=== PATIENT | female | born 1940 | race Caucasian/White ===

== ENCOUNTER 2016-08-15 10:46 | Outpatient (CLI) | payer MEDICARE, BC, OTHER | END 2016-08-15 10:47 | disposition home or self-care (01) | LOC: EMS 10:46 | PROVIDERS: ATTEND Surgery | DX: M54.89 Other dorsalgia (principal) | CPT/HCPCS: A0425; A0427 ==

== ENCOUNTER 2016-08-15 10:59 | Emergency (ER) | payer MEDICARE, BC, OTHER ==
--- NOTE | 2016-08-15 11:06 | ED Physician Documentation ---
History of Present Illness - Stated complaint Stated Complaint: BACK PAIN - Additonal information Additional information: hx from pt 76 female to ER with 1 hr of L upper back pain some rad to chest pain is severe and gripping somewhat worse with breathing or palpation no fever no cough no abd pain no numbness or weakness no incont no trauma no hx of same given fentanyl and nitro in route with some relief also R thumb pain s injury recalled for a week -hurts to move Review of Systems Constitutional: denies: Fever, Chills Cardiac: reports: Chest pain / pressure. 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[place]: Hysterectomy, Mastectomy - Present Medications Home Medications: Ambulatory Orders Medication Instructions Recorded Confirmed Levothyroxine [Synthroid] 100 mcg PO QDAC 09/16/14 10/01/14 Magnesium Oxide [Mag Ox] 400 mg PO QPM 09/16/14 10/01/14 Metformin HCl 1,000 mg PO BID 09/16/14 10/01/14 Potassium Chloride [Klor-Con M20] 1 tab PO DAILY 09/16/14 10/01/14 Furosemide [Lasix] 40 mg PO DAILY 10/01/14 10/01/14 Ibuprofen 600 mg PO TIDWM PRN 10/01/14 10/01/14 Metoprolol Tartrate [Lopressor] 25 mg PO BID 10/01/14 10/01/14 Oxycodone HCl/Acetaminophen 1 - 2 each PO Q4H PRN 10/01/14 10/01/14 [Percocet 5-325 mg Tablet] Pravastatin Sodium [Pravachol] 20 mg PO QPM 10/01/14 10/01/14 Amox/Clav 875/125 [Augmentin] 1 each PO Q12H #14 tablet 08/28/15 Fluconazole [Diflucan] 150 mg PO ONCE PRN #1 tablet 08/28/15 Furosemide [Lasix] 40 mg PO DAILY #0 tablet 08/28/15 Gabapentin 300 mg PO TID #30 capsule 08/28/15 Potassium Chloride 10 meq PO DAILY #3 tablet.er 08/28/15 Lidocaine Patch 5% [Lidoderm Patch] 1 each TOP DAILY PRN #10 patch 08/15/16 - Allergies Allergies/Adverse Reactions: Allergies Allergy/AdvReac Type Severity Reaction Status Date / Time No Known Drug Allergies Allergy Verified 08/15/16 11:06 - Social History Does the pt smoke?: No Smoking Status: Never smoker Does the pt drink ETOH?: No Does the pt have substance abuse?: No - Immunizations Immunizations are current?: Yes - POLST Patient has POLST: No PD ED PE NORMAL - Vitals Vital signs reviewed: Yes - General General: Alert and oriented X 3 - HEENT HEENT: PERRL - Neck Neck: Supple, no meningeal sign - Cardiac Cardiac: RRR, No murmur - Respiratory Respiratory: No respiratory distress, Clear bilaterally - Abdomen Abdomen: Soft, Non tender - Back Back: No spinal TTP, Other (L upper back TTP near scalpula, no shingles rash, no midline spine pain) - Derm Derm: Normal color - Extremities Extremities: Other (R hand - TTP hypotehnar region and prox thumb no deformity pain with ROM but able MSV intact no erythema or warmth) - Neuro Neuro: Alert and oriented X 3, No motor deficit, No sensory deficit Results - Vitals Vitals: Vital Signs - 24 hr 08/15/16 08/15/16 08/15/16 11:00 12:45 13:13 Temperature 36.8 C Heart Rate 73 57 L 68 Respiratory 20 16 24 Rate Blood Pressure 139/59 H 110/48 L 128/60 O2 Saturation 96 98 98 08/15/16 08/15/16 14:12 15:17 Temperature Heart Rate 66 70 Respiratory 24 16 Rate Blood Pressure 140/88 H 141/61 H O2 Saturation 98 98 Oxygen O2 Source Room air - EKG (time done) 1119 Rate: Rate (enter#) (67) Rhythm: NSR [place]: Normal Intervals: Normal [place] QRS: Normal Ischemia: Normal ST segments - Labs Labs: Laboratory Tests 08/15/16 08/15/16 08/15/16 11:15 11:15 15:09 WBC 4.7 L RBC 4.36 Hgb 13.2 Hct 38.7 MCV 88.7 MCH 30.4 MCHC 34.2 RDW 13.4 Plt Count 169 MPV 8.4 Neut # 2.7 Lymph # 1.4 L [place] # 0.4 Eos # 0.1 Baso # 0.1 Absolute Nucleated RBC 0.00 Nucleated RBCs 0.1 Sodium 145 Potassium 3.2 L Chloride 108 Carbon Dioxide 29 Anion Gap 8.0 BUN 22 H Creatinine 0.9 Estimated GFR (MDRD) 61 L Glucose 123 H Calcium 9.3 Total Bilirubin 0.7 AST 21 ALT 17 Alkaline Phosphatase 80 Troponin I < 0.04 Total Protein 6.9 Albumin 3.9 Globulin 3.0 Albumin/Globulin Ratio 1.3 Lipase 28 - Rads (name of study) CXR Radiology: See rad report (NACPD) hand Radiology: See rad report (OA of thumb) CTA chest Radiology: See rad report (no dissection or aneurysm, no PE, no L mass. There is inc linear) PD MEDICAL DECISION MAKING - ED course ED course: EKG s ischemia - will check 4 hr trop CXR no acute CTA neg for dissection likely musculo/skeletal Departure - Departure Disposition: 01 Home, Self Care Clinical Impression: Upper back pain on left side Condition: Good Instructions: ED Neck Back Pain General Prescriptions: Lidocaine Patch 5% [Lidoderm Patch] 1 each TOP DAILY PRN #10 patch PRN Reason: Pain Comments: The EKG and blood test for your heart were fine - no signs of a heart attack The CT scan did not show an aneurysm or tear of your aorta or any major lung mass to cause the pain The CT did show some other abnormalities that need some follow up - there were some abnormal spots in the right breast that could be leaks from the prior implant but I would recommend a mammogram. And there is a linear abnormality in the right lung that is not new but is slightly bigger than before - the radiologist think it is probably scarring or underinflated lung tissue - but recommends you see your PMD to get further follow up imaging in the near future to be sure there are no further changes I am not sure what did cause the back pain - it could be muscular - or it could be shingles and you may break out in a rash over the next few days (if that happens call your doctor for a viral medication prescription) You can use the lidocaine patches I prescribed as needed for the pain - up to 12 hr a day The thumb xray showed arthritis - recommend tylenol and you can wear the splint we gave you Do not take your metformin today or for three days after the CT scan with contrast And please follow up with your PMD to get your blood pressure rechecked - it was high today
[2016-08-15 11:23] LABS: BASOPHILS # (AUTO) 0.1 10^3/uL (0.0-0.1); BASOPHILS % (AUTO) 1.4 %; EOSINOPHILS # (AUTO) 0.1 10^3/uL (0.0-0.7); HCT - HEMATOCRIT 38.7 % (37.0-47.0); HGB - HEMOGLOBIN 13.2 g/dL (12.0-16.0); LYMPHOCYTES # (AUTO) 1.4 10^3/uL (1.5-3.5); LYMPHOCYTES % (AUTO) 29.7 %; MEAN CORPUSCULAR HEMOGLOBIN 30.4 pg (27.0-31.0); MEAN CORPUSCULAR HGB CONC 34.2 g/dL (32.0-36.0); MEAN CORPUSCULAR VOLUME 88.7 fL (81.0-99.0); MEAN PLATELET VOLUME 8.4 fL (7.9-10.8); MONOCYTES # (AUTO) 0.4 10^3/uL (0.0-1.0); MONOCYTES % (AUTO) 7.8 %; NEUTROPHILS # (AUTO) 2.7 10^3/uL (1.5-6.6); NEUTROPHILS % (AUTO) 58.1 %; NUCLEATED RED BLOOD CELLS AUTO 0.1 /100WBC; RED BLOOD COUNT 4.36 10^6/uL (4.20-5.40); RED CELL DISTRIBUTION WIDTH 13.4 % (12.0-15.0); UNCORRECTED WHITE BLOOD COUNT 4.7 x10^3/uL; WHITE BLOOD COUNT 4.7 x10^3/uL (4.8-10.8)
[2016-08-15 11:36] LABS: ALBUMIN/GLOBULIN RATIO 1.3 (1.0-2.2); BILIRUBIN,TOTAL 0.7 mg/dL (0.2-1.0); CALCIUM 9.3 mg/dL (8.5-10.3); CREATININE 0.9 mg/dL (0.4-1.0); POTASSIUM 3.2 mmol/L (3.5-5.0); TOTAL PROTEIN 6.9 g/dL (6.7-8.2)
--- NOTE | 2016-08-15 12:22 | XRAY Preliminary Report ---
Exam: XR Chest 1 View IMPRESSION: Normal single view chest. [facility] SITE ID: [id number]
--- NOTE | 2016-08-15 12:24 | XRAY Report ---
EXAM: CHEST RADIOGRAPHY EXAM DATE: 08/15/2016 12:07 PM. CLINICAL HISTORY: Left upper back pain. COMPARISON: 04/01/2015. TECHNIQUE: 1 view. FINDINGS: Lungs/Pleura: No focal opacities evident. No pleural effusion. No pneumothorax. Mediastinum: Within exam limitations, cardiomediastinal contour is normal. Other: None. IMPRESSION: Normal single view chest. [facility] Referring Provider Line: [phone] SITE ID: [id number]
[2016-08-15] MEDS ORDERED: LIDOCAINE PATCH 5% TOP STA (12:39)
[2016-08-15] MEDS ORDERED: LIDOCAINE PATCH 5% TOP ONE (12:43)
[2016-08-15] MEDS ORDERED: POTASSIUM CHLORIDE 20 MEQ TABLET PO STA (12:46)
[2016-08-15] MEDS ORDERED: SODIUM CHLORIDE 0.9% 1,000 ML IV ONE (12:46)
[2016-08-15] MEDS ORDERED: POTASSIUM CHLORIDE 20 MEQ TABLET PO ONE (13:06)
--- NOTE | 2016-08-15 13:35 | XRAY Preliminary Report ---
Exam: XR Hand 3 View RT Impression: Moderate osteoarthritis of the first carpometacarpal joint. [facility] SITE ID: [id number]
--- NOTE | 2016-08-15 13:38 | XRAY Report ---
EXAM: RIGHT HAND RADIOGRAPHY EXAM DATE: 08/15/2016 01:26 PM. CLINICAL HISTORY: R thumb pain. COMPARISON: None. TECHNIQUE: 3 views. FINDINGS: Joint space narrowing and subchondral sclerosis is seen involving the first carpal metacarpal joint c onsistent with moderate osteoarthritis. The remainder of the joints raises are well preserved. No dis placed fracture is identified. Impression: Moderate osteoarthritis of the first carpometacarpal joint. [facility] Referring Provider Line: [phone] SITE ID: [id number]
[2016-08-15] MEDS ORDERED: IOPAMIDOL-300 100 ML VIAL IVP ONE (13:58)
--- NOTE | 2016-08-15 14:36 | CT Report ---
EXAM: CT ANGIOGRAM CHEST EXAM DATE: 08/15/2016 02:01 PM. CLINICAL HISTORY: Cp rad to back with soa. COMPARISON: 09/21/2011. TECHNIQUE: Routine helical imaging was performed through the chest in the pulmonary arterial phase. I V Contrast: 100 cc of Isovue-300. Reconstructions: Coronal 3-D MIP reconstructions.Sagittal and coron al. In accordance with CT protocol optimization, one or more of the following dose reduction techniques w ere utilized for this exam: automated exposure control, adjustment of mA and/or KV based on patient s ize, or use of iterative reconstructive technique. FINDINGS: There is adequate opacification of the pulmonary arteries. There is no filling defect to suggest the presence of a pulmonary embolus area there is atherosclerosis of the aorta and its branches, includin g the coronary arteries. There is no evidence of a thoracic aortic aneurysm or dissection. No mediastinal mass is identified. There is a heterogeneous appearance of the right breast with new low density lesions surrounding the right breast implant. There appear to be 2. The largest measures 2.7 x 4.3 x 3.8 cm. This may represent an old hemorrhage, seromas or implant leak. Linear changes are noted in the right perihilar region demonstrate interval increase in size when com pared to the previous study. The suprahilar area measures approximately 1.5 x 1.2 cm (image 32 of ser ies 7). At the same level, on the previous study, it measured approximately 1.2 x 0.6 cm. The left lung is well aerated. There is no pleural effusion or pneumothorax. There are postoperative changes consistent with cholecystectomy. The visualized upper abdominal organ s demonstrate a normal early arterial phase of enhancement. Kidneys are without evidence of hydroneph rosis. There are degenerative changes of the right shoulder. Degenerative changes of the lumbar spine are noted. Impression: No evidence of pulmonary embolus. Atherosclerosis of the aorta and its branches, including the coronary arteries. Heterogeneous appearance of the right breast with new low density lesions and fluid surrounding the i mplant. These may be secondary to old hemorrhage, seromas or implant leak. Linear changes in the right perihilar region. This demonstrates interval increase in size when compar ed to the previous day. Although this most likely represents scarring or atelectasis, an infiltrative neoplastic process cannot be entirely excluded. If further characterization is needed, a close inter mya follow-up CT, PET CT or biopsy is recommended. [facility] Referring Provider Line: [phone] SITE ID: [id number]
[2016-08-15 16:50] VITALS: BP 140/65
== END 2016-08-15 16:49 | disposition home or self-care (01) ==
LOC: EDUNIT# → EDBD → ED 10:59
DX: M54.6 Pain in thoracic spine (principal); R07.9 Chest pain, unspecified; M19.041 Primary osteoarthritis, right hand; R91.8 Other nonspecific abnormal finding of lung field; R92.8 Other abnormal and inconclusive findings on diagnostic imaging of breast; I10 Essential (primary) hypertension; E03.9 Hypothyroidism, unspecified
CPT/HCPCS: 36415; 71010; 71275; 73130; 80053; 83690; 84484; 85025; 93005; 93010; 96360; 96361; 99284; A9270; Q9967

== ENCOUNTER 2016-12-08 10:54 | Outpatient (CLI) | payer MEDICARE, BC, OTHER ==
[2016-12-08 19:33] LABS: BASOPHILS # (AUTO) 0.1 10^3/uL (0.0-0.1); BASOPHILS % (AUTO) 1.3 %; EOSINOPHILS # (AUTO) 0.2 10^3/uL (0.0-0.7); EOSINOPHILS % (AUTO) 2.7 %; HCT - HEMATOCRIT 42.7 % (37.0-47.0); HGB - HEMOGLOBIN 14.1 g/dL (12.0-16.0); LYMPHOCYTES # (AUTO) 1.8 10^3/uL (1.5-3.5); LYMPHOCYTES % (AUTO) 31.1 %; MEAN CORPUSCULAR HEMOGLOBIN 30.2 pg (27.0-31.0); MEAN CORPUSCULAR VOLUME 91.6 fL (81.0-99.0); MEAN PLATELET VOLUME 9.2 fL (7.9-10.8); MONOCYTES # (AUTO) 0.5 10^3/uL (0.0-1.0); NEUTROPHILS # (AUTO) 3.3 10^3/uL (1.5-6.6); NEUTROPHILS % (AUTO) 55.9 %; NUCLEATED RED BLOOD CELLS AUTO 0.1 /100WBC; RED BLOOD COUNT 4.66 10^6/uL (4.20-5.40); RED CELL DISTRIBUTION WIDTH 13.5 % (12.0-15.0); UNCORRECTED WHITE BLOOD COUNT 5.9 x10^3/uL; WHITE BLOOD COUNT 5.9 x10^3/uL (4.8-10.8)
[2016-12-08 20:12] LABS: PLATELET ESTIMATE, MANUAL NORMAL (130-450,000) (NORMAL); PLATELET MORPHOLOGY NORMAL APPEARANCE (NORMAL); WBC MORPHOLOGY (MULTIPLE) NORMAL APPEARANCE (NORMAL)
== END 2016-12-08 10:55 | disposition home or self-care (01) ==
LOC: LAB.WCP 10:54
PROVIDERS: ATTEND Family Medicine
DX: R10.11 Right upper quadrant pain (principal)
CPT/HCPCS: 36415; 85025

== ENCOUNTER 2016-12-10 09:16 | Outpatient (CLI) | payer MEDICARE, BC, OTHER ==
[2016-12-10 10:46] LABS: ALBUMIN/GLOBULIN RATIO 1.4 (1.0-2.2); BILIRUBIN,TOTAL 0.6 mg/dL (0.2-1.0); CALCIUM 9.6 mg/dL (8.5-10.3); CREATININE 1.1 mg/dL (0.4-1.0); POTASSIUM 3.8 mmol/L (3.5-5.0); TOTAL PROTEIN 7.2 g/dL (6.7-8.2)
--- NOTE | 2016-12-10 20:56 | Ultrasound Report ---
EXAM: ABDOMEN ULTRASOUND EXAM DATE: 12/10/2016 09:36 a.m. CLINICAL HISTORY: Right upper quadrant pain. Periportal lymph nodes biopsied 2 weeks ago. COMPARISON: CT chest 08/15/2016. TECHNIQUE: Real-time scanning was performed with static images obtained. FINDINGS: Liver: Normal in size. Mildly heterogeneous echotexture. 19.7 cm. Main portal vein flow: Hepatopetal. Gallbladder: Surgically absent. Biliary System: Common bile duct measures 5 mm. No intrahepatic or extrahepatic ductal dilatation. Pancreas: Visualized portion is unremarkable. Kidneys: Right: 11.4 cm longitudinally. Normal. No contour-deforming mass, stones, or hydronephrosis. Left: 11.6 cm longitudinally. Normal. No contour-deforming mass, stones, or hydronephrosis. Spleen: 11.7 cm longitudinally. Normal in size and echotexture. Aorta and Inferior Vena Cava: Unremarkable. No free fluid. IMPRESSION: Cholecystectomy, otherwise unremarkable abdomen ultrasound. [facility] Referring Provider Line: [phone] SITE ID: [id number]
== END 2016-12-10 09:17 | disposition home or self-care (01) ==
LOC: DI 09:16
PROVIDERS: ATTEND Family Medicine
DX: R10.11 Right upper quadrant pain (principal); Z90.49 Acquired absence of other specified parts of digestive tract
CPT/HCPCS: 76700; 80053; 83690

== ENCOUNTER 2017-02-02 18:49 | Outpatient (CLI) | payer MEDICARE, BC, OTHER ==
--- NOTE | 2017-02-02 21:13 | Ultrasound Preliminary Report ---
Exam: US DUPLEX EXT VEINS LEFT IMPRESSION: No evidence for deep venous thrombosis. Limited as above. [facility] SITE ID: [id number]
--- NOTE | 2017-02-02 21:15 | Ultrasound Report ---
EXAM: LEFT LOWER EXTREMITY VENOUS ULTRASOUND EXAM DATE: 02/02/2017 08:53 PM. CLINICAL HISTORY: LEG EDEMA, LEFT. COMPARISON: None. TECHNIQUE: Real-time sonographic vascular imaging was performed by the newspaper delivery counselor through the lower extremity utilizing both color-flow and Doppler spectral analysis. Multiple outreach representative static marylou ges were saved for review. FINDINGS: Common Femoral Vein (CFV): Normal. CFV-GSV Junction: Normal. Profunda Femoral Vein (PFV): Normal. Femoral Vein (FV) Prox: Normal. Femoral Vein (FV) Mid: Normal. Femoral Vein (FV) Dist: Limited visualization. Appears to compress. Popliteal Vein: Normal. Posterior Tibial Veins: Limited visualization. No definite thrombus seen. Peroneal Veins: Limited visualization. No definite thrombus seen. Other: Large body habitus limits the exam. IMPRESSION: No evidence for deep venous thrombosis. Limited as above. [facility] Referring Provider Line: [phone] SITE ID: [id number]
--- NOTE | 2017-02-03 09:50 | XRAY Report ---
LEFT KNEE: 02/02/2017 COMPARISON: None. INDICATION: Knee pain. Posterior pain. No trauma. TECHNIQUE: Two views of the left knee. FINDINGS: Normal alignment. No evidence of acute fracture. No effusion. There are minimal tricompartmental degenerative changes. IMPRESSION: MINIMAL TRICOMPARTMENTAL OSTEOARTHRITIS. JOB #: [id number] EXT JOB #: [id number] [facility]
== END 2017-02-02 18:50 | disposition home or self-care (01) ==
LOC: DI 18:49
PROVIDERS: ATTEND Family Medicine
DX: R60.0 Localized edema (principal); M17.12 Unilateral primary osteoarthritis, left knee

== ENCOUNTER 2017-03-09 13:09 | Outpatient (CLI) | payer MEDICARE, BC, OTHER | END 2017-03-09 13:10 | disposition home or self-care (01) | LOC: SC 13:09 | PROVIDERS: ATTEND Nurse Practitioner Family | DX: G47.33 Obstructive sleep apnea (adult) (pediatric) (principal) | CPT/HCPCS: 99204; G0463; 99212 ==

== ENCOUNTER 2017-03-29 14:54 | Emergency (ER) | payer MEDICARE, BC, OTHER ==
--- NOTE | 2017-03-29 15:47 | ED Physician Documentation ---
PD HPI LOWER EXT INJURY - Stated complaint Stated Complaint: LT LEG PX - Chief complaint Chief Complaint: Ext Problem - History obtained from History obtained from: Patient PD PAST MEDICAL HISTORY - Past Medical History Past Medical History: Yes Cardiovascular: Hypertension Endocrine/Autoimmune: Type 2 diabetes, HyPOthyroidism GI: GERD Musculoskeletal: Gout - Past Surgical History Past Surgical History: Yes General: Cholecystectomy, Appendectomy /ORACLE DBA: Hysterectomy, Mastectomy - Present Medications Home Medications: Ambulatory Orders Medication Instructions Recorded Confirmed Levothyroxine [Synthroid] 100 mcg PO QDAC 09/16/14 11/29/16 Magnesium Oxide [Mag Ox] 400 mg PO QPM 09/16/14 11/29/16 Metformin HCl 1,000 mg PO BID 09/16/14 11/29/16 Ibuprofen 600 mg PO TIDWM PRN 10/01/14 11/29/16 Metoprolol Tartrate [Lopressor] 25 mg PO BID 10/01/14 11/29/16 Oxycodone HCl/Acetaminophen 1 - 2 each PO Q4H PRN 10/01/14 11/29/16 [Percocet 5-325 mg Tablet] Pravastatin Sodium [Pravachol] 20 mg PO QPM 10/01/14 11/29/16 Furosemide [Lasix] 40 mg PO DAILY #0 tablet 08/28/15 11/29/16 Gabapentin 300 mg PO TID #30 capsule 08/28/15 11/29/16 Potassium Chloride 10 meq PO DAILY #3 tablet.er 08/28/15 11/29/16 Lidocaine Patch 5% [Lidoderm Patch] 1 each TOP DAILY PRN #10 patch 08/15/1605/13 - Allergies Allergies/Adverse Reactions: Allergies Allergy/AdvReac Type Severity Reaction Status Date / Time No Known Drug Allergies Allergy Verified 08/15/16 11:06 - Social History Does the pt smoke?: No Smoking Status: Never smoker Does the pt drink ETOH?: No Does the pt have substance abuse?: No - Immunizations Immunizations are current?: Yes - POLST Patient has POLST: No Results - Vitals Vitals: Vital Signs - 24 hr 03/29/17 15:02 Temperature 36.4 C L Heart Rate 79 Respiratory 20 Rate Blood Pressure 126/87 H O2 Saturation 96 Oxygen O2 Source Room air
[2017-03-29] MEDS ORDERED: oxyCOD/ACETAMIN 5 MG/325 MG TABLET PO STA (16:42)
[2017-03-29] MEDS ORDERED: KETOROLAC 60 MG/2 ML VIAL IM STA (16:42)
[2017-03-29] MEDS ORDERED: METHOCARBAMOL 500 MG TABLET PO STA (16:44)
[2017-03-29] MEDS ORDERED: DEXAMETHASONE 10 MG/ML VIAL PO STA (16:44)
[2017-03-29] MEDS ORDERED: CHERRY SYRUP 10 ML UDC PO ONE (16:57)
[2017-03-29 17:04] LABS: BASOPHILS # (AUTO) 0.1 10^3/uL (0.0-0.1); BASOPHILS % (AUTO) 1.1 %; EOSINOPHILS # (AUTO) 0.1 10^3/uL (0.0-0.7); EOSINOPHILS % (AUTO) 1.6 %; HGB - HEMOGLOBIN 13.1 g/dL (12.0-16.0); LYMPHOCYTES # (AUTO) 1.1 10^3/uL (1.5-3.5); LYMPHOCYTES % (AUTO) 13.7 %; MEAN CORPUSCULAR HEMOGLOBIN 30.2 pg (27.0-31.0); MEAN CORPUSCULAR HGB CONC 33.3 g/dL (32.0-36.0); MEAN CORPUSCULAR VOLUME 90.8 fL (81.0-99.0); MEAN PLATELET VOLUME 8.7 fL (7.9-10.8); MONOCYTES # (AUTO) 0.6 10^3/uL (0.0-1.0); MONOCYTES % (AUTO) 7.2 %; NEUTROPHILS # (AUTO) 6.3 10^3/uL (1.5-6.6); NEUTROPHILS % (AUTO) 76.4 %; PLT - PLATELET COUNT 186 10^3/uL (130-450); RED BLOOD COUNT 4.32 10^6/uL (4.20-5.40); RED CELL DISTRIBUTION WIDTH 13.2 % (12.0-15.0); WHITE BLOOD COUNT 8.2 x10^3/uL (4.8-10.8)
[2017-03-29 17:09] LABS: ALBUMIN/GLOBULIN RATIO 1.3 (1.0-2.2); BILIRUBIN,TOTAL 0.4 mg/dL (0.2-1.0); CALCIUM 9.8 mg/dL (8.5-10.3); TOTAL PROTEIN 7.1 g/dL (6.7-8.2)
--- NOTE | 2017-03-29 19:03 | Ultrasound Report ---
EXAM: LEFT LOWER EXTREMITY VENOUS ULTRASOUND EXAM DATE: 03/29/2017 06:33 PM. CLINICAL HISTORY: Left leg pain and swelling continues for over a month. COMPARISON: Ultrasound duplex extremity veins left 02/02/2017. TECHNIQUE: Real-time sonographic vascular imaging was performed by the purchasing assistant through the lower extremity utilizing both color-flow and Doppler spectral analysis. Multiple banking representative static marylou ges were saved for review. FINDINGS: Common Femoral Vein (CFV): Normal. CFV-GSV Junction: Normal. Profunda Femoral Vein (PFV): Normal. Femoral Vein (FV) Prox: Normal. Femoral Vein (FV) Mid: Normal. Femoral Vein (FV) Dist: Normal. Popliteal Vein: Normal. Posterior Tibial Veins: Normal. Peroneal Veins: Normal. Other: Limited visualization of the posterior tibial and peroneal veins. IMPRESSION: No evidence for deep venous thrombosis. Limited visualization of the posterior tibial and peroneal veins. [facility] Referring Provider Line: [phone] SITE ID: [id number]
--- NOTE | 2017-03-29 19:03 | Ultrasound Preliminary Report ---
Exam: US DUPLEX EXT VEINS LEFT IMPRESSION: No evidence for deep venous thrombosis. Limited visualization of the posterior tibial and peroneal veins. [facility] SITE ID: [id number]
--- NOTE | 2017-03-29 19:09 | ED Physician Documentation ---
PD HPI LOWER EXT INJURY - Stated complaint Stated Complaint: LT LEG PX - Chief complaint Chief Complaint: Ext Problem - History obtained from History obtained from: Patient - History of Present Illness PD HPI LOW EXT INJURY LOCATION: Left, Upper leg, Lower leg, Calf Type of injury: No: Fall, Twist Timing - onset: How many months ago (2) Timing - duration: Months (2) Timing - details: Gradual onset, Still present, Waxing and waning Improved by: No: Rest Worsened by: Moving, Palpating Associated symptoms: No: Weakness, Numbness, Swelling Similar symptoms before: Has not had sx before Recently seen: Clinic (with knee xray and blood tests. Treated with NSAIDs. Worsening and considerable pain lately. No rash nor sores.) Review of Systems Constitutional: denies: Fever, Chills GI: denies: Abdominal Pain, Nausea, Vomiting, Diarrhea Skin: denies: Rash, Lesions Musculoskeletal: reports: Extremity pain. denies: Neck pain, Back pain, Extremity swelling Neurologic: denies: Focal weakness, Numbness PD PAST MEDICAL HISTORY - Past Medical History Past Medical History: Yes Cardiovascular: Hypertension Endocrine/Autoimmune: Type 2 diabetes, HyPOthyroidism GI: GERD Musculoskeletal: Gout - Past Surgical History Past Surgical History: Yes General: Cholecystectomy, Appendectomy /PROMOTIONAL DEMONSTRATOR: Hysterectomy, Mastectomy - Present Medications Home Medications: Ambulatory Orders Medication Instructions Recorded Confirmed Levothyroxine [Synthroid] 100 mcg PO QDAC 09/16/14 11/29/16 Magnesium Oxide [Mag Ox] 400 mg PO QPM 09/16/14 11/29/16 Metformin HCl 1,000 mg PO BID 09/16/14 11/29/16 Ibuprofen 600 mg PO TIDWM PRN 10/01/14 11/29/16 Metoprolol Tartrate [Lopressor] 25 mg PO BID 10/01/14 11/29/16 Oxycodone HCl/Acetaminophen 1 - 2 each PO Q4H PRN 10/01/14 11/29/16 [Percocet 5-325 mg Tablet] Pravastatin Sodium [Pravachol] 20 mg PO QPM 10/01/14 11/29/16 Furosemide [Lasix] 40 mg PO DAILY #0 tablet 08/28/15 11/29/16 Gabapentin 300 mg PO TID #30 capsule 08/28/15 11/29/16 Potassium Chloride 10 meq PO DAILY #3 tablet.er 08/28/15 11/29/16 Lidocaine Patch 5% [Lidoderm Patch] 1 each TOP DAILY PRN #10 patch 08/15/1605/13 Dexamethasone [Decadron] 4 mg PO DAILY #5 tablet 03/29/17 Gabapentin 100 mg PO TID #30 capsule 03/29/17 Methocarbamol [Robaxin] 500 mg PO Q6H PRN #25 tablet 03/29/17 Oxycodone HCl/Acetaminophen 1 each PO Q6H PRN #20 tablet 03/29/17 [Percocet 5-325 mg Tablet] - Allergies Allergies/Adverse Reactions: Allergies Allergy/AdvReac Type Severity Reaction Status Date / Time No Known Drug Allergies Allergy Verified 08/15/16 11:06 - Social History Does the pt smoke?: No Smoking Status: Never smoker Does the pt drink ETOH?: No Does the pt have substance abuse?: No - Family History Family history: denies: CAD, Aortic aneursym, Aortic dissection - Immunizations Immunizations are current?: Yes - POLST Patient has POLST: No PD ED PE NORMAL - Vitals Vital signs reviewed: Yes - General General: Alert and oriented X 3, Well developed/nourished, Other (appears in pain for left leg. Some tenderness in left gluteal, left thigh, and left calf. No rash nor sores. Some tender in rht calf as well. No edema. ) - Neck Neck: Supple, no meningeal sign, No adenopathy - Cardiac Cardiac: RRR, No murmur - Respiratory Respiratory: Clear bilaterally - Abdomen Abdomen: Normal bowel sounds, Soft, Non tender, Non distended - Back Back: No CVA TTP, No spinal TTP - Derm Derm: Normal color, Warm and dry, No rash - Extremities Extremities: Normal ROM s pain, No edema, Other (left calf and thigh tender without rash nor sores. some tender in right calf and anterior thigh as well. ) - Neuro Neuro: Alert and oriented X 3, No motor deficit, No sensory deficit, Normal speech, Other (normal DTR at left knee. Some arthritic changes noted at knee. No effusion. ) Results - Vitals Vitals: Oxygen O2 Source Room air - Labs Labs: Laboratory Tests 03/29/17 03/29/17 03/29/17 16:54 16:54 16:54 WBC 8.2 RBC 4.32 Hgb 13.1 Hct 39.3 MCV 90.8 MCH 30.2 MCHC 33.3 RDW 13.2 Plt Count 186 MPV 8.7 Neut # 6.3 Lymph # 1.1 L [place] # 0.6 Eos # 0.1 Baso # 0.1 Absolute Nucleated RBC 0.00 Nucleated RBC % 0.0 ESR 25 Sodium 143 Potassium 3.5 Chloride 106 Carbon Dioxide 26 Anion Gap 11.0 BUN 21 H Creatinine 1.0 Estimated GFR (MDRD) 54 L Glucose 124 H Calcium 9.8 Total Bilirubin 0.4 AST 18 ALT 18 Alkaline Phosphatase 69 Total Creatine Kinase 63 Total Protein 7.1 Albumin 4.0 Globulin 3.1 Albumin/Globulin Ratio 1.3 Lipase 28 - Rads (name of study) duplex leg Radiology: Prelim report reviewed (no DVT) PD MEDICAL DECISION MAKING - ED course Complexity details: reviewed results (no DVT. Labs are okay. Consider muscle irritation. She has pain down leg but is also tender in major muscles of the leg. She is on statin, so will have her hold that. Could be sciatic pain as well. ), considered differential, d/w patient Departure - Departure Disposition: Home, Self Care Clinical Impression: Leg pain, left, Muscle tenderness, Sciatica of left side Clinical Impression: (Ruled Out): Deep vein thrombosis Condition: Stable Record reviewed to determine appropriate education?: Yes Instructions: ED Muscle Pain Leg Cramps, ED Sciatica Follow-Up: Angelo Parra DO [Primary Care Provider] - Prescriptions: Dexamethasone [Decadron] 4 mg PO DAILY #5 tablet Gabapentin 100 mg PO TID #30 capsule Methocarbamol [Robaxin] 500 mg PO Q6H PRN #25 tablet PRN Reason: Spasms Oxycodone HCl/Acetaminophen [Percocet 5-325 mg Tablet] 1 each PO Q6H PRN #20 tablet PRN Reason: Pain Comments: The ultrasound does not show any blood clots. Your blood tests do not show any signs of muscle breakdown or significant inflammation or signs of infection. You do have a lot of muscle tenderness and the cholesterol medicines can cause that so I would have you stop your pravastatin. If that is the cause he can take a few weeks off of it for the inflammation of the muscles to decrease. He also have some element this sounds like sciatic or nerve root pain from the back down the leg. Will try treating these with Decadron anti-inflammatory for 5 days and Robaxin muscle relaxant if there is some muscle spasming or stiffness (the heat has been helping so it may be some muscle stiffness). Add gabapentin which helps with nerve type pain three times daily for the next week. Continue the Percocet as needed for pain. Follow-up with your primary care in the next 3-4 days to see what improvement you have had with these. Discharge Date/Time: 03/29/17 19:18
[2017-03-29 19:18] VITALS: BP 151/63
== END 2017-03-29 19:18 | disposition home or self-care (01) ==
LOC: ED 14:54
DX: M79.605 Pain in left leg (principal); M79.1 Myalgia; M54.32 Sciatica, left side; I10 Essential (primary) hypertension; E11.9 Type 2 diabetes mellitus without complications; Z79.84 Long term (current) use of oral hypoglycemic drugs; E03.9 Hypothyroidism, unspecified; K21.9 Gastro-esophageal reflux disease without esophagitis; M10.9 Gout, unspecified
CPT/HCPCS: 36415; 80053; 82550; 83690; 85025; 85651; 93971; 96372; 99283; 99284; A9270

== ENCOUNTER 2017-04-14 09:38 | Outpatient (CLI) | payer MEDICARE, BC, OTHER ==
--- NOTE | 2017-04-14 18:02 | MRI Report ---
EXAM: MRI LUMBAR SPINE WITHOUT CONTRAST EXAM DATE: 04/14/2017 11:47 AM. CLINICAL HISTORY: HX OF BREAST CANCER, SCIATICA, LEFT. COMPARISON: Radiographs 02/08/2017. TECHNIQUE: Multiplanar, multisequence T1-weighted and fluid-sensitive sequences of the lumbar spine f rom T12 to S1 without contrast. Other: None. FINDINGS: Spinal Cord: The conus terminates at L2. The conus medullaris and cauda equina are unremarkable. Alignment: Normal alignment. No spondylolisthesis. Bone Marrow: Five [id number] lumbar vertebral bodies are assumed. No fractures are identified. M ildly heterogenous marrow signal. Some probable small vertebral body hemangiomata, the largest at the L4 level measuring approximately 9 mm. No pathologic osseous lesions are identified. Disk Levels/Facets: T12-L1: Unremarkable. L1-L2: Unremarkable. L2-L3: Mild disk dehydration. Small foraminal disk bulging without significant stenosis. L3-L4: Minimal facet arthropathy. Minimal disk bulge. No stenosis. L4-L5: Mild disk height loss and dehydration. Annular disk bulge with broad-based paracentral and for aminal protrusions and moderate degenerative facet arthropathy with ligamentum flavum buckling. Mild central canal stenosis. Mild left greater than right foraminal narrowing without significant stenosis . L5-S1: Mild disk height loss. Mild annular disk bulge. [id number] degenerative facet arthropath y. No significant stenosis. Musculature: Normal. No edema or fatty atrophy. Other: Nonspecific posterior subcutaneous soft tissue edema. IMPRESSION: 1. Mild multilevel lumbar degenerative disk and facet arthropathy without a significant degree of can al or foraminal stenosis demonstrated. 2. No findings to suggest presence of bony metastatic disease within the [id number]. Comment: The following findings are so common in adults without low back pain that while we report th eir presence, they must be interpreted with caution and in the context of the clinical situation. (Re moe Mathew et al, Spine 2001) Prevalence of findings in patients without low back pain: Disk degeneration (any evidence): 92% Disk desiccation/T2 signal loss: 83% Disk height loss: 56% Disk bulge: 64% Disk protrusion: 32% Annular tear/high intensity zone: 38% [facility] Referring Provider Line: [phone] SITE ID: [id number]
== END 2017-04-14 09:39 | disposition home or self-care (01) ==
LOC: DI 09:38
PROVIDERS: ATTEND Family Medicine
DX: M51.36 Other intervertebral disc degeneration, lumbar region (principal); M47.896 Other spondylosis, lumbar region; Z85.3 Personal history of malignant neoplasm of breast
CPT/HCPCS: 72148

== ENCOUNTER 2017-04-21 11:53 | Outpatient (CLI) | payer MEDICARE, BC, OTHER ==
--- NOTE | 2017-04-21 16:51 | Nuclear Medicine Report ---
EXAM: BONE SCAN EXAM DATE: 04/21/2017 04:05 PM. CLINICAL HISTORY: HX OF BREAST CA, SCIATICA. COMPARISON: Lumbar spine MRI 04/14/2017. TECHNIQUE: Following the intravenous administration of 32.3 mCi of technetium 99m MDP and an appropri ate delay, a whole-body scan was performed in anterior and posterior projections. Site-specific spot views of the region of interest were obtained in various projections. FINDINGS: Exam Quality: Normal overall osseous radiotracer uptake. Physiological tracer uptake in bilateral col lecting systems. Skull: No focal uptake. Thorax: No focal lesions in ribs or sternum. Pelvis: No focal lesions. Spine: Mild left-sided degenerative facet uptake at L4-L5. Small focus of left-sided degenerative fac et uptake in the mid cervical spine. Extremities: Mild degenerative uptake in both knees. IMPRESSION: 1. Negative for scintigraphic evidence of skeletal metastatic disease. 2. Mild degenerative facet uptake in the cervical and lumbar spine. [facility] Referring Provider Line: [phone] SITE ID: [id number]
== END 2017-04-21 11:54 | disposition home or self-care (01) ==
LOC: DI 11:53
PROVIDERS: ATTEND Family Medicine
DX: M47.892 Other spondylosis, cervical region (principal); M47.896 Other spondylosis, lumbar region; Z85.3 Personal history of malignant neoplasm of breast
CPT/HCPCS: 78306; A9503